=== PATIENT | male | born 1960 | race African-American/Black ===

== ENCOUNTER 2017-04-27 11:43 | Emergency (ER) | payer MEDICARE, OTHER ==
--- OUTSIDE RECORDS SUMMARY | 2017-04-27 11:47 | XMS | Clinical Summary ---
:1960 Author Organization [facility] Address [address] [place] [address] Phone Care Team Providers Name Role Phone , Primary Care Provider Unavailable Allergies Not on File Current Medications Not on file Active Problems Not on file Social History Tobacco Use Types Packs/Day Years Used Date Never Assessed Sex Assigned at Date Recorded Not on file Last Filed Vital Signs Not on file Plan of Treatment Not on file Results Not on filefrom Last 3 Months
[2017-04-27 12:31] LABS: #Basophils 0.1 thou/uL (0.0-0.2); #Monocytes 0.7 thou/uL (0.11-0.59); #Neutrophils 7.9 thou/uL (1.40-6.50); %Basophils 0.5 % (0.0-1.0); %Eosinophils 0.1 % (0.0-10.0); %Lymphocytes 18.9 % (21.0-51.0); %Monocytes 6.3 % (0.0-10.0); Hematocrit 53.6 % (42.0-52.0); Mean Platelet Volume 7.8 fL (7.4-10.4); Red Blood Cell (RBC) Count 6.11 mill/uL (4.70-6.10); White Blood Cell (WBC) Count 10.6 thou/uL (4.8-10.8)
--- NOTE | 2017-04-27 12:50 | RAD ---
AP CHEST: History: Chest pain. FINDINGS: The lungs are well aerated. No evidence of active intrathoracic disease seen. No evidence of effusio ns, pneumonia, or pneumothorax seen. IMPRESSION: Unremarkable AP chest. POS: [facility]
[2017-04-27 12:55] LABS: ALT (SGPT) 23 U/L (8-55); AST (SGOT) 19 U/L (5-34); Alkaline Phosphatase 109 U/L (40-150); Anion Gap 20 mmol/L (10-20); BUN (Urea Nitrogen) 32 mg/dL (8.4-25.7); CK (CPK) 160 U/L (30-200); Calc. Creatinine Clearance 0 mL/min (70-130); Calcium 10.6 mg/dL (7.8-10.44); Carbon Dioxide 18 mmol/L (22-29); Chloride 103 mmol/L (98-107); Estimated GFR-MDRD 59; Globulin 4.3 g/dL (2.4-3.5); Lipase Less than 4 U/L (8-78); Protein, Total 9.3 g/dL (6.0-8.3)
[2017-04-27 12:59] LABS: Troponin I Less than 0.010 ng/mL (< 0.028)
[2017-04-27 13:20] LABS: PTT 27.6 SEC (22.9-36.1)
[2017-04-27 13:22] LABS: Prothrombin Time 14.6 SEC (12.0-14.7)
--- NOTE | 2017-04-27 14:28 | CT ---
CT OF THE ABDOMEN AND PELVIS WITH CONTRAST: History: 56-year-old male with history of abdominal pain. Technique: Contrast enhanced CT images of the abdomen and pelvis obtained after the administration o f IV contrast. Oral contrast was not given. FINDINGS: The lung bases are unremarkable. No evidence of free intraperitoneal air is seen. The liver is unremarkable. The gallbladder has been surgically removed. 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 The spleen and splenic vein are unremarkable. Adrenal glan ds unremarkable. Some cortical cysts seen in the right and left kidneys. No dilated loops of small b owel seen. A normal appendix is seen. There does appear to be some thickening of the colon involving the descending and sigmoid colon. Thi s may represent changes of colitis. Correlate with direct visualization. Some descending colonic div erticula also seen. L5-S1 disc vacuum changes seen with endplate irregularity. 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 A small right sided scrotal hydrocele is also present. IMPRESSION: 1. Some descending sigmoid colonic thickening concerning for colitis. POS: [facility]
--- NOTE | 2017-04-27 14:30 | CT ---
CT THORAX UTILIZING IV CONTRAST WITH PE PROTOCOL AND 3D REFORMATTED IMAGING: Date: 04/27/17 INDICATION: Chest pain and dyspnea. FINDINGS: No central or segmental pulmonary embolus is present. The heart and great vessels appear within normal limits. No confluent air space opacity or pleural e ffusion is noted. No definite pathologically enlarged lymph nodes are evident. The upper abdomen is detailed in the separately dictated CT of the abdomen and pelvis. IMPRESSION: No central or segmental pulmonary embolus demonstrated. POS: [facility]
[2017-04-27] MEDS ORDERED: ISOVUE-370 76%-LOCM 1 ML ONE (16:28)
== END 2017-04-27 15:45 | disposition home or self-care (01) ==
LOC: ERS 11:43
DX: N28.9 Disorder of kidney and ureter, unspecified (principal); R79.1 Abnormal coagulation profile; E78.5 Hyperlipidemia, unspecified; I10 Essential (primary) hypertension; F41.9 Anxiety disorder, unspecified; F03.90 Unspecified dementia, unspecified severity, without behavioral disturbance, psychotic disturbance, mood disturbance, and anxiety; Z87.891 Personal history of nicotine dependence; Z79.01 Long term (current) use of anticoagulants
CPT/HCPCS: 36415; 71010; 71275; 74177; 80053; 82550; 82553; 83690; 83880; 84484; 85025; 85379; 85610; 85730; 93005; 94760

== ENCOUNTER 2017-10-20 10:39 | Outpatient (CLI) | payer MEDICARE, MEDICAID | END 2017-10-20 10:40 | disposition home or self-care (01) | LOC: BICRAD 10:39 | PROVIDERS: ATTEND Family Medicine | DX: M79.604 Pain in right leg (principal); J44.9 Chronic obstructive pulmonary disease, unspecified; M48.07 Spinal stenosis, lumbosacral region; Z90.49 Acquired absence of other specified parts of digestive tract; Z89.511 Acquired absence of right leg below knee | CPT/HCPCS: 71046; 72100; 72170 ==

== ENCOUNTER 2017-11-20 02:24 | Emergency (ER) | payer MEDICARE, MEDICAID ==
[2017-11-20] MEDS ORDERED: Ketorolac Tromethamine 30 MG/ML VIAL ONE (05:43)
[2017-11-20] MEDS ORDERED: diphenhydrAMINE 25 MG CAP ONE (06:24)
== END 2017-11-20 06:31 | disposition home or self-care (01) ==
LOC: ERS 02:24
DX: M79.604 Pain in right leg (principal); E78.5 Hyperlipidemia, unspecified; I10 Essential (primary) hypertension; F17.210 Nicotine dependence, cigarettes, uncomplicated; Z79.899 Other long term (current) drug therapy; Z86.73 Personal history of transient ischemic attack (TIA), and cerebral infarction without residual deficits; Z71.6 Tobacco abuse counseling
CPT/HCPCS: 96372; 99406; J1885